=== PATIENT | female | born 1985 | race Caucasian/White ===

== ENCOUNTER 2016-12-25 20:26 | Emergency (ER) | payer SELFPAY ==
[~2016-12-25] VITALS: Ht 162.6 cm; Wt 60.0 kg
[2016-12-25 20:30] VITALS: Ht 162.6 cm; Wt 60.0 kg
[2016-12-25] MEDS ORDERED: ACETAMINOPHEN 500 MG TAB PO STA (21:07)
[2016-12-25 21:14] LABS: URINE BLOOD (Dip) POC Negative (NEGATIVE)
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
[2016-12-25] MEDS ORDERED: IBUP400T22 PO (23:10)
[2016-12-25] MEDS ORDERED: ACET500C5 PO (23:11)
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
== END 2016-12-25 23:20 | disposition home or self-care (01) ==
LOC: FTE 20:26
DX: S09.90XA Unspecified injury of head, initial encounter (principal); S19.9XXA Unspecified injury of neck, initial encounter; R51 Headache; V49.40XA Driver injured in collision with unspecified motor vehicles in traffic accident, initial encounter
CPT/HCPCS: 70450; 72125; 81003